=== PATIENT | female | born 1960 | race Caucasian/White ===

== ENCOUNTER 2018-11-18 17:58 | Emergency (ER) | payer OTHER ==
[2018-11-18] MEDS: predniSONE 20 MG TAB PO (20:37)
[2018-11-18] MEDS: IPRATROPIUM (NEB) 0.5 MG/2.5 ML AMP INH (20:58)
[2018-11-18] MEDS: ALBUTEROL 0.5% (NEB) 2.5 MG/0.5 ML AMP INH (20:58)
== END 2018-11-18 22:08 | disposition home or self-care (01) ==
LOC: FTE 17:58
DX: J45.901 Unspecified asthma with (acute) exacerbation (principal); I10 Essential (primary) hypertension
CPT/HCPCS: 71045; 94644; 99283-25